=== PATIENT | male | born 1935 | race Caucasian/White ===

== ENCOUNTER 2017-03-06 09:09 | Emergency (ER) | payer MEDICARE, OTHER ==
[~2017-03-06] VITALS: Ht 172.7 cm; Wt 93.5 kg
[2017-03-06 09:13] VITALS: BP 126/78
[2017-03-06] MEDS ORDERED: TAM75C PO (10:26)
== END 2017-03-06 11:13 | disposition home or self-care (01) ==
LOC: ER 09:10
DX: J20.9 Acute bronchitis, unspecified (principal); M94.0 Chondrocostal junction syndrome [Tietze]; J09.X2 Influenza due to identified novel influenza A virus with other respiratory manifestations; I10 Essential (primary) hypertension; Z79.899 Other long term (current) drug therapy
CPT/HCPCS: 71046; 87502; 87503; 99285